=== PATIENT | male | born 1975 | race Caucasian/White ===

== ENCOUNTER 2024-09-01 16:38 | Emergency (ER) | payer OTHER ==
[2024-09-01 17:15] LABS: Absolute Basophils 0.1 K/uL (0-0.5); Absolute Eosinophils 0.2 K/uL (0-0.5); Absolute Lymphocytes (CBC) 2.3 K/uL (0.7-4.9); Absolute Monocytes 1.2 K/uL (0.1-1.3); Absolute Neutrophil 6.7 K/uL (1.8-8.0); Basophils % 0.7 % (0-1.3); Eosinophils % 2.2 % (0-4.4); Hematocrit 44.1 % (39.6-49.0); Hemoglobin 14.8 g/dL (13.6-17.9); Lymphocytes % 22.2 % (15.3-44.8); MCH 28.2 pg (27.0-35.0); MCHC 33.6 g/dL (32.0-36.0); MPV 8.8 fL (7.6-11.3); Neutrophils % 63.9 % (41.7-73.7); Nucleated Red Blood Cells % 0.3 % (0-0); Platelets 242 thou/uL (152-406); RBC Red Blood Cell Count 5.25 M/uL (4.33-5.43)
[2024-09-01 17:25] LABS: PT Prothrombin Time 13.3 SECONDS (9.4-12.5); Protime INR 1.19
[2024-09-01 17:37] LABS: ALT/SGPT 54 U/L (16-61); Albumin 3.4 g/dL (3.4-5.0); Albumin/Globulin Ratio 0.7 (1.1-1.8); Alkaline Phosphatase 91 U/L (45-117); Anion Gap 8.7 mEq/L (5.0-15.0); BUN Blood Urea Nitrogen 17 mg/dL (7-18); Bicarbonate 28 mEq/L (21-32); Bilirubin Total 0.4 mg/dL (0.2-1.0); Globulin 4.7 g/dL (2.3-3.5); Glomerular Filtration Rate 71 ml/min (=/>90); Glucose Level 103 mg/dL (74-106); NT PRO-BNP 19 pg/mL (<125); Potassium 3.7 mEq/L (3.5-5.1); Protein, Total 8.1 g/dL (6.4-8.2); Sodium Level 134 mEq/L (136-145); Troponin High Sensitivity 3.5 pg/mL (<58.9)
[2024-09-01 17:38] LABS: AST/SGOT 36 U/L (15-37); Bilirubin Direct < 0.2 mg/dL (0-0.2); Bilirubin Indirect, Calculated 0.2 mg/dL (0.2-0.8); Magnesium 1.9 mg/dL (1.6-2.4)
--- NOTE | 2024-09-01 17:55 | EDPHYS ---
Physician Documentation [facility] Name: Anand Sim Age: 49 yrs Sex: Male : 1975 Arrival Date: 09/01/2024 Time: 16:38 Bed 2 Private MD: ED Physician Pancho Russo HPI: 09/01 17:18 This 49 yrs old Male presents to ER via Ambulatory with complaints of Chest Pain. sp3 17:18 49-year-old male with a history of hypertension, "prediabetes", acid reflux, history of sp3 tachycardia now presents to the ED with chief complaint off-and-on chest pain occurring in spurts since early Saturday 4 days ago. Patient states he has had "bad food over the weekend" and feels like it could be reflux. However he contacted [employer] to his company and they suggested coming in for evaluation. Patient has had 40 pound weight loss in an effort to become healthy. He had a negative echocardiogram in July of this year. He has not had a stress test. He denies any current pain. He also denies headache, fever, URI symptoms, neck pain, shortness of breath, back pain, abdominal pain, vomiting, diarrhea, syncope, near syncope, focal neurological deficit, travel history, prolonged immobilization, prior history of DVT or PE, known sick contacts or any other signs or symptoms on ROS at this time.. Historical: - Allergies: 16:56 No Known Allergies; jb4 - PMHx: 16:56 HTN; Pre Diabetic; Acid Reflux; Elevated HR; jb4 - PSHx: 16:56 Endoscopy; Colinoscopy; jb4 - Immunization history:: Adult Immunizations up to date. - Infectious Disease History:: Denies. - Social history:: Smoking status: Patient denies any tobacco usage or history of. ROS: 17:21 Constitutional: Negative for fever, chills, and weight loss, Eyes: Negative for injury, sp3 pain, redness, and discharge, ENT: Negative for injury, pain, and discharge, Neck: Negative for injury, pain, and swelling, Respiratory: Negative for shortness of breath, cough, wheezing, and pleuritic chest pain, Abdomen/GI: Negative for abdominal pain, nausea, vomiting, diarrhea, and constipation, Back: Negative for injury and pain, MS/Extremity: Negative for injury and deformity, Skin: Negative for injury, rash, and discoloration, Neuro: Negative for headache, weakness, numbness, tingling, and seizure, Psych: Negative for depression, anxiety, suicide ideation, homicidal ideation, and hallucinations, Allergy/Immunology: Negative for hives, rash, and allergies, Endocrine: Negative for neck swelling, polydipsia, polyuria, polyphagia, and marked weight changes, Hematologic/Lymphatic: Negative for swollen nodes, abnormal bleeding, and unusual bruising, 17:21 All other systems are negative, Exam: 17:22 Constitutional: This is a well developed, well nourished patient who is awake, alert, sp3 and in no acute distress. Head/Face: Normocephalic, atraumatic. Eyes: Pupils equal round and reactive to light, extra-ocular motions intact. Lids and lashes normal. Conjunctiva and sclera are non-icteric and not injected. Cornea within normal limits. Periorbital areas with no swelling, redness, or edema. Neck: Trachea midline, no thyromegaly or masses palpated, and no cervical lymphadenopathy. Supple, full range of motion without nuchal rigidity, or vertebral point tenderness. No Meningismus. Chest/axilla: Normal chest wall appearance and motion. Nontender with no deformity. No lesions are appreciated. Cardiovascular: Regular rate and rhythm with a normal S1 and S2. No gallops, murmurs, or rubs. Normal PMI, no JVD. No pulse deficits. Respiratory: Lungs have equal breath sounds bilaterally, clear to auscultation and percussion. No rales, rhonchi or wheezes noted. No increased work of breathing, no retractions or nasal flaring. Abdomen/GI: Soft, non-tender, with normal bowel sounds. No distension or tympany. No guarding or rebound. No evidence of tenderness throughout. Back: No spinal tenderness. No costovertebral tenderness. Full range of motion. Skin: Warm, dry with normal turgor. Normal color with no rashes, no lesions, and no evidence of cellulitis. MS/ Extremity: Pulses equal, no cyanosis. Neurovascular intact. Full, normal range of motion. Neuro: Awake and alert, GCS 15, oriented to person, place, time, and situation. Cranial nerves II-XII grossly intact. Motor strength 5/5 in all extremities. Sensory grossly intact. Cerebellar exam normal. Normal gait. Psych: Awake, alert, with orientation to person, place and time. Behavior, mood, and affect are within normal limits. 17:22 ECG was reviewed by the Attending Physician. EKG demonstrates normal sinus rhythm at 76 bpm with normal intervals, normal QRS, normal axis, nonspecific diffuse ST's ST changes without evidence of acute ischemia. Vital Signs: 16:55 BP 134 / 74; Pulse 74; Resp 18; Temp 98.5(O); Pulse Ox 99% on R/A; Weight 195.04 kg jb4 (R); Height 5 ft. 11 in. (R); 17:15 BP 112 / 86; Pulse 77; Resp 18; Pulse Ox 96% on R/A; cm10 17:45 BP 117 / 83; Pulse 76; Resp 16; Pulse Ox 98% ; cm10 16:55 Body Mass Index 59.97 (195.04 kg, 180.34 cm) jb4 MDM: 16:51 Medical Screening Exam initiated sp3 17:22 Data reviewed: vital signs, nurses notes, lab test result(s), EKG, radiologic studies. sp3 ED course: 49-year-old male with PMH above now with chest pain for 4 days. Differential diagnosis includes gastritis, esophageal reflux, musculoskeletal pain, and to a lesser degree ACS. 1 set of cardiac markers should rule patient out from acute injury given the duration of his symptoms. Patient well-appearing and in no acute distress with normal EKG. I have urged patient to get a stress test as an outpatient. If workup is negative, we will safely discharge patient home with general precautions avoidance of exertional activities. Patient understands to return for any worsening symptoms.. 17:54 ED course: Workup negative and patient has no chest pain. We will safely discharge home sp3 at this time with follow-up to cardiology.. 09/01 16:52 Order name: Basic Metabolic Panel; Complete Time: 17:40 sp3 09/01 16:52 Order name: CBC with Diff; Complete Time: 17:40 sp3 09/01 16:52 Order name: LFT's; Complete Time: 17:40 sp3 09/01 16:52 Order name: Magnesium; Complete Time: 17:40 sp3 09/01 16:52 Order name: NT PRO-BNP; Complete Time: 17:40 sp3 09/01 16:52 Order name: PT-INR; Complete Time: 17:40 sp3 09/01 16:52 Order name: Troponin HS; Complete Time: 17:40 sp3 09/01 16:52 Order name: XRAY Chest (1 view) sp3 09/01 16:52 Order name: Cardiac monitoring; Complete Time: 17:08 sp3 09/01 16:52 Order name: EKG - Nurse/Tech; Complete Time: 17:08 sp3 09/01 16:52 Order name: IV Saline Lock; Complete Time: 17:08 sp3 09/01 16:52 Order name: Labs collected and sent; Complete Time: 17:08 sp3 09/01 16:52 Order name: O2 Per Protocol; Complete Time: 17: sp3 09/01 16:52 Order name: O2 Sat Monitoring; Complete Time: 17:08 sp3 Administered Medications: No medications were administered Disposition Summary: 09/01/24 17:55 Discharge Ordered Notes: Location: Home sp3 Condition: Stable sp3 Diagnosis - Chest pain, unspecified sp3 Followup: sp3 - With: Ezra Tyler MD - When: Upon discharge from the Emergency Department - Reason: Recheck today's complaints Discharge Instructions: - Discharge Summary Sheet sp3 - Nonspecific Chest Pain, Adult sp3 Forms: - Medication Reconciliation Form sp3 - Antibiotic Education sp3 - Prescription Opioid Use sp3 - Patient Portal Instructions sp3 - Leadership Thank You Letter sp3 Signatures: Dispatcher [employer] Masood Reed RN RN jb4 Pancho Russo MD MD sp3 Corrections: (The following items were deleted from the chart) 16:52 16:52 Chest Single View+RAD.RAD.BRZ ordered. EDMS EDMS
--- NOTE | 2024-09-01 17:55 | ER ---
Nurse's Notes [facility] Name: Anand Sim Age: 49 yrs Sex: Male : 1975 Arrival Date: 09/01/2024 Time: 16:38 Bed 2 Private MD: Diagnosis: Chest pain, unspecified Presentation: 09/01 16:55 Chief complaint: Patient states: I have been having chest pain on and off since jb4 Saturday. I called my employee health nurse and I was told to come in. I have no pain at this time. Coronavirus screen: At this time, the client does not indicate any symptoms associated with coronavirus-19. Ebola Screen: No symptoms or risks identified at this time. Initial Sepsis Screen: Does the patient meet any 2 criteria? No. Patient's initial sepsis screen is negative. Does the patient have a suspected source of infection? No. Patient's initial sepsis screen is negative. Risk Assessment: Do you want to hurt yourself or someone else? Patient reports no desire to harm self or others. Onset of symptoms was September 01, 2024. Transition of care: patient was not received from another setting of care. 16:55 Method Of Arrival: Ambulatory jb4 16:55 Acuity: ELIF 3 jb4 Triage Assessment: 17:17 General: Appears in no apparent distress. comfortable, Behavior is calm, cooperative. cm10 Pain: Complains of pain in chest Pain does not radiate. Pain currently is 0 out of 10 on a pain scale. Quality of pain is described as sharp, Pain began Saturday Is intermittent. Neuro: No deficits noted. Level of Consciousness is awake, alert, obeys commands, Oriented to person, place, time, situation, Appropriate for age. Cardiovascular: No deficits noted. Patient's skin is warm and dry. Rhythm is regular Chest pain is described as mild, quality is sharp, is located in substernal area began Saturday episodes are intermittent. Respiratory: No deficits noted. Airway is patent Respiratory effort is even, unlabored, Respiratory pattern is regular, symmetrical. Musculoskeletal: No deficits noted. Swelling present in right leg and left leg. Historical: - Allergies: 16:56 No Known Allergies; jb4 - PMHx: 16:56 HTN; Pre Diabetic; Acid Reflux; Elevated HR; jb4 - PSHx: 16:56 Endoscopy; Colinoscopy; jb4 - Immunization history:: Adult Immunizations up to date. - Infectious Disease History:: Denies. - Social history:: Smoking status: Patient denies any tobacco usage or history of. Screenin:19 [facility] ED Fall Risk Assessment (Adult) History of falling in the last 3 months, cm10 including since admission No falls in past 3 months (0 pts) Confusion or Disorientation No (0 pts) Intoxicated or Sedated No (0 pts) Impaired Gait No (0 pts) Mobility Assist Device Used No (0 pt) Altered Elimination No (0 pt) Score/Fall Risk Level 0 - 2 = Low Risk Oriented to surroundings, Maintained a safe environment, Hourly rounding (assess needs \T\ fall precautionary measures) done. Abuse screen: Denies threats or abuse. Denies injuries from another. Nutritional screening: No deficits noted. Tuberculosis screening: No symptoms or risk factors identified. Assessment: 18:04 Reassessment: Patient appears in no apparent distress at this time. No changes from cm10 previously documented assessment. Patient and/or family updated on plan of care and expected duration. Pain level reassessed. Patient is alert, oriented x 3, equal unlabored respirations, skin warm/dry/pink. Vital Signs: 16:55 BP 134 / 74; Pulse 74; Resp 18; Temp 98.5(O); Pulse Ox 99% on R/A; Weight 195.04 kg jb4 (R); Height 5 ft. 11 in. (R); 17:15 BP 112 / 86; Pulse 77; Resp 18; Pulse Ox 96% on R/A; cm10 17:45 BP 117 / 83; Pulse 76; Resp 16; Pulse Ox 98% ; cm10 16:55 Body Mass Index 59.97 (195.04 kg, 180.34 cm) jb4 ED Course: 16:45 Patient arrived in ED. mg5 16:48 Pancho Russo MD is Attending Physician. sp3 16:48 Deanna Hayden, RN is Primary Nurse. cm10 16:56 Triage completed. jb4 16:56 Arm band placed on right wrist. jb4 17:16 Initial lab(s) drawn, by me, sent to lab. EKG done, by ED staff, reviewed by Pancho Russo MD. Inserted saline lock: 20 gauge in right antecubital area, using aseptic technique. Blood collected. Flushed with 10 mL NS. Patient maintains SpO2 saturation greater than 95% on room air. 17:17 Patient has correct armband on for positive identification. Placed in gown. Bed in low cm10 position. Call light in reach. Side rails up X2. Provided Education on: ER process and procedures.. Client placed on continuous cardiac and pulse oximetry monitoring. NIBP monitoring applied. monitor and storage bin tender on. 17:54 Ezra Tyler MD is Referral Physician. sp3 17:58 XRAY Chest (1 view) In Process Unspecified. EDMS 18:04 No provider procedures requiring assistance completed. IV discontinued, intact, cm10 bleeding controlled, No redness/swelling at site. Pressure dressing applied. Administered Medications: No medications were administered Medication: 17:19 VIS not applicable for this client. cm10 Outcome: 17:55 Discharge ordered by . sp3 18:04 Discharged to home ambulatory, cm10 18:04 Condition: good 18:04 Discharge instructions given to patient, Instructed on discharge instructions, follow up and referral plans. Demonstrated understanding of instructions, follow-up care, 18:04 Patient left the ED. cm10 Signatures: Dispatcher [employer] EDMS Masood Yin RN RN jb4 Pancho Russo MD MD sp3 Deanna Hayden, RN RN cm10 Joselin Benoit mg5
[2024-09-01 18:09] VITALS: TEMP 98.5
[2024-09-01 18:11] VITALS: BP 117/83; O2SAT 98
--- NOTE | 2024-09-02 14:48 | EKG ---
Test Date: 2024-09-01 Test Time: 16:59:52 Hotel Maintenance Technician: BUSHRA MEASUREMENT RESULTS: Intervals: Rate: 76 MS: 174 QRSD: 98 QT: 382 QTc: 429 [place]: P: 34 MS: 174 QRS: -20 T: 33 INTERPRETIVE STATEMENTS: Normal sinus rhythm Normal ECG No previous ECG available for comparison Electronically Signed On 09-02-24 14:46:00 CDT by Ezra Tyler
== END 2024-09-01 18:04 | disposition home or self-care (01) ==
LOC: ER 16:38
DX: R07.9 Chest pain, unspecified (principal); I10 Essential (primary) hypertension; R73.03 Prediabetes
CPT/HCPCS: 36415; 71045; 80048; 80076; 83735; 83880; 84484; 85025; 85610; 93005; 99284